=== PATIENT | female | born 1995 | race Caucasian/White ===

== ENCOUNTER 2020-11-28 13:07 | Emergency (ER) | payer OTHER ==
[~2020-11-28] VITALS: Ht 162.6 cm; Wt 93.1 kg
[2020-11-28] MEDS ORDERED: LIDOCAINE 1% Multi-Dose 20 ML VIAL. INJ ONE (13:45)
[2020-11-28 13:49] VITALS: BP 135/70
[2020-11-28] MEDS ORDERED: CEPH500C PO (13:58)
--- NOTE | 2020-11-28 13:59 | PHYS DOC ---
General Adult EDM: Chief Complaint: ABSCESS HPI: HPI: Patient is a 25 year old female who presents with left lower labial abscess for the last 2 days. She states it is a burning aching kind of pain when she is walking. She denies fever, abdominal pain, nausea, vomiting, abnormal vaginal discharge, urinary symptoms. She denies any drainage. She rates her pain a 5 out of 10 when she is up and moving. Patient denies any other past medical history. Review of Systems: Review of Systems: Constitutional: Denies fever or chills. [] Eyes: Denies change in visual acuity. [] HENT: Denies nasal congestion or sore throat. [] Respiratory: Denies cough or shortness of breath. [] Cardiovascular: Denies chest pain or edema. [] GI: Denies abdominal pain, nausea, vomiting, bloody stools or diarrhea. [] : Denies dysuria. + Left labial abscess [] Musculoskeletal: Denies back pain or joint pain. [] Integument: Denies rash. +Left labial abscess [] Neurologic: Denies headache, focal weakness or sensory changes. [] Endocrine: Denies polyuria or polydipsia. [] Lymphatic: Denies swollen glands. [] Psychiatric: Denies depression or anxiety. [] Heart Score: C/O Chest Pain: N/A Risk Factors: Risk Factors: DM, Current or recent (<one month) smoker, HTN, HLP, family history of CAD, obesity. Risk Scores: Score 0 - 3: 2.5% MACE over next 6 weeks - Discharge Home Score 4 - 6: 20.3% MACE over next 6 weeks - Admit for Clinical Observation Score 7 - 10: 72.7% MACE over next 6 weeks - Early Invasive Strategies Current Medications: Current Medications Medications (Trade) Dose Ordered Sig/[facility] Start Time Stop Time Status Last Admin Dose Admin Lidocaine HCl (Lidocaine 1% 20ml Vial) 20 ml 1X ONCE 11/28/20 13:45 11/28/20 13:46 UNV Physical Exam: PE: Constitutional: Well developed, well nourished, no acute distress, non-toxic appearance. [] HENT: Normocephalic, atraumatic, bilateral external ears normal, oropharynx moist, no oral exudates, nose normal. [] Eyes: PERRLA, EOMI, conjunctiva normal, no discharge. [] Neck: Normal range of motion, no tenderness, supple, no stridor. [] Cardiovascular:Heart rate regular rhythm, no murmur [] Lungs & Thorax: Bilateral breath sounds clear to auscultation [] Abdomen: Bowel sounds normal, soft, no tenderness, no masses, no pulsatile masses. [] Skin: Warm, dry, no erythema, no rash. Left lower labial abscess with pink skin around the area. No cellulitis. [] Back: No tenderness, no CVA tenderness. [] Extremities: No tenderness, no cyanosis, no clubbing, ROM intact, no edema. [] Neurologic: Alert and oriented X 3, normal motor function, normal sensory function, no focal deficits noted. [] Psychologic: Affect normal, judgement normal, mood normal. [] EKG: EKG: [] Radiology/Procedures: Radiology/Procedures: [] Course & Med Decision Making: Course & Med Decision Making Pertinent Labs and Imaging studies reviewed. (See chart for details) See HPI. No associated cellulitis and she is afebrile. She denies any concern for sexually transmitted disease. I&D Location: Left lower labial Anesthesia: 1% lidocaine Scalpel size: #11 Skin: [place] around the abscess Drainage: Small purulent drainage with incision and drainage Packing: None Patient tolerated the procedure well with no complications. The area was prepped and draped in usual sterile fashion. Area was cleaned with chloehexidine prior to procedure. Return for signs and symptoms of infection education given. Patient to return in 48 hours for wound recheck. [] Liam Disclaimer: Liam Disclaimer: This electronic medical record was generated, in whole or in part, using a voice recognition dictation system. Departure Departure Impression: Primary Impression: Abscess Disposition: 01 DC HOME SELF CARE/HOMELESS Condition: STABLE Referrals: NO PCP (PCP) Patient Instructions: Abscess, Care After, Abscess, Perineal, Sitz Bath Additional Instructions: Return in 48 hours for a wound check or you can follow-up with your primary care provider. Take ibuprofen for pain. Take antibiotics with food and as prescribed. Try using sitz bath's and or use a heating pad to the area. Scripts Cephalexin (CEPHALEXIN) 500 Mg Capsule 1 CAP PO QID, #40 CAP Prov: ALICIA FIGUEROA [employer] 11/28/20 ALICIA FIGUEROA APRN Nov 28, 2020 13:59
[2020-11-28 14:35] LABS: BILIRUBIN,URINE NEGATIVE (NEG); CLARITY,URINE CLEAR; COLOR,URINE YELLOW; NITRITE,URINE NEGATIVE (NEG); PROTEIN,URINE NEGATIVE (NEG-TRACE); UROBILINOGEN,URINE 0.2 mg/dL (0.2 mg/dL)
[2020-11-28 14:54] LABS: BACTERIA,URINE MANY /HPF (0-FEW)
[2020-11-28 14:56] LABS: RBC,URINE RARE /HPF (0-2)
== END 2020-11-28 14:19 | disposition home or self-care (01) ==
LOC: ER 13:07
DX: N76.4 Abscess of vulva (principal)
CPT/HCPCS: 56405; 81001; 81025; 87086; 99284; J3490